=== PATIENT | female | born 1965 | race Caucasian/White ===

== ENCOUNTER 2023-06-25 06:37 | Day surgery (SDC) | payer OTHER ==
[2023-06-25] MEDS ORDERED: Sodium Chloride 0.9% 1,000 ML IV SCH (07:15)
[2023-06-25] MEDS ORDERED: fentaNYL 100 MCG/2 ML SDV ONE (07:18)
[2023-06-25] MEDS ORDERED: Propofol 200 MG/20 ML SDV ONE (07:18)
[2023-06-25] MEDS ORDERED: Midazolam 1 MG/ML 2 ML SDV ONE (07:18)
== END 2023-06-25 09:51 | disposition home or self-care (01) ==
LOC: JP.SDS 06:37
PROVIDERS: ATTEND Surgery
DX: K29.51 Unspecified chronic gastritis with bleeding (principal); K22.89 Other specified disease of esophagus; K21.00 Gastro-esophageal reflux disease with esophagitis, without bleeding; K64.8 Other hemorrhoids; J45.909 Unspecified asthma, uncomplicated; I47.10 Supraventricular tachycardia, unspecified
CPT/HCPCS: 43239; 45398; 88305; J2250; J2704; J3010; J7030